=== PATIENT | female | born 1930 | race Caucasian/White ===

== ENCOUNTER → 2018-01-22 | Outpatient (CLI) | payer MEDICARE ==
[~2018-01-22] MED LIST: ACET325 PO; ALEN70 PO; AMLO5 PO; Amlodipine Bes2.5 MG PO; CALGLU500; CIPR500 PO; CIPR750; CLOP75; CLOP75 PO; DIPASPER PO; DIVA500EC PO; HYDR1TAB94 PO; INDA2.5; METCELP; METO25; METO25ER; METO50 PO; METO50ER; METR500; MULVITA; Multi-Day Vita1 EACH; OMEP20ER PO; OS CAL PO; POTCHL20ER PO; PRAV20; PRAV20 PO; RISE35; TRAM50 PO; VIT1CAPS12 PO; [UNRECOGNIZED DRUG - OTHER] PO
== END | disposition home or self-care (01) ==
LOC: LAB SHORT 08:08 → PLD 08:08
DX: D48.5 Neoplasm of uncertain behavior of skin (principal)
CPT/HCPCS: 88305